=== PATIENT | female | born 1930 | race Caucasian/White ===

== ENCOUNTER 2018-07-23 18:56 | Inpatient (IN) ==
[2018-07-23 20:06] LABS: Basophils # (auto) 0.01 K/uL (0-0.2); Basophils % (auto) 0.1 %; Eosinophils # (auto) 0.02 K/uL (0-0.5); Eosinophils % (auto) 0.2 %; Hematocrit (blood only) 40.1 % (37-47); Hemoglobin 13.5 g/dL (12.0-16.0); Immature Granulocytes # (auto) 0.02 K/uL (0.00-0.02); Immature Granulocytes % (auto) 0.2 %; Lymphocytes % (auto) 10.7 %; Mean Corpuscular Hgb Conc 33.7 g/dL (32-36); Mean Corpuscular Volume 91.8 fL (80-100); Monocytes # (auto) 0.57 K/uL (0.11-0.59); Monocytes % (auto) 6.8 %; Neutrophils # (auto) 6.88 K/uL (1.4-6.5); Platelet Count 132 K/uL (130-400); RDW Coefficient of Variation 13.1 % (11.5-14.5); RDW Standard Deviation 43.9 fL (36.4-46.3); Red Blood Count 4.37 M/uL (4.2-5.4)
--- NOTE | 2018-07-23 20:06 | XRay Report ---
XR chest 1V portable CLINICAL HISTORY: fall trauma. Pain. COMPARISON STUDY: No previous studies for comparison. FINDINGS: The bones soft tissues and hemidiaphragms are normal. The cardiomediastinal silhouette is n ormal. The lungs are clear. The pulmonary vasculature is normal. IMPRESSION: Negative chest. The above report was generated using voice recognition software. It may contain grammatical, syntax or spelling errors. Electronically signed by: Mata Gillette M.D. 07/23/2018 8:05 PM
--- NOTE | 2018-07-23 20:07 | XRay Report ---
XR pelvis 1-2V routine CLINICAL HISTORY: fall trauma COMPARISON: 04/13/2018 DISCUSSION: The bones and joint spaces appear intact. There is no evidence of fracture, dislocation o r bony disease. There is no evidence for soft tissue swelling. IMPRESSION: Negative study. The above report was generated using voice recognition software. It may contain grammatical, syntax or spelling errors. Electronically signed by: Mata Gillette M.D. 07/23/2018 8:05 PM
[2018-07-23 20:25] LABS: BUN Creatinine Ratio 17.5 (10-20); Calcium 8.7 mg/dl (8.5-10.1); Creatinine Clr Calc Pharmacy 35.5 ml/min; Est GFR (African American) 74.6; Est GFR (Non-African American) 64.4
[2018-07-23 20:29] LABS: Troponin I 0.019 ng/ml (0-0.045)
--- NOTE | 2018-07-23 20:42 | CT Scan Report ---
CT head/brain wo con CT DOSE: 537.48 mGy.cm HISTORY: Trauma. Mental status change. fall TECHNIQUE: Multiaxial CT images of the head were performed without the use of intravenous contrast. A dose lowering technique was utilized adhering to the principles of ALARA. Comparison: 04/13/2018 Findings: The paranasal sinuses and mastoid air cells are clear. 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 Age-rel ated atrophy. Chronic small vessel change. No acute intracranial hemorrhage. Impression: No acute intracranial abnormality. Chronic and age-related change. The above report was generated using voice recognition software. It may contain grammatical, syntax or spelling errors. Electronically signed by: Mata Gillette M.D. 07/23/2018 8:40 PM
[2018-07-23] MEDS ORDERED: POLYETHYLENE (MIRALAX) 17 GM PACK PO PRN (23:13)
[2018-07-23] MEDS ORDERED: NITROGLYCERIN SL 0.4 MG/TAB TAB SL PRN (23:13)
[2018-07-23] MEDS ORDERED: SODIUM CHLORIDE 0.9% 1000ML 1,000 ML IV SCH (23:13)
[2018-07-23] MEDS ORDERED: ALUMINUM/MAGNESIUM SUSP 30 ML UDC PO PRN (23:13)
[2018-07-23] MEDS ORDERED: LORazepam 0.5 MG TAB PO PRN (23:13)
[2018-07-23] MEDS ORDERED: ACETAMINOPHEN 325 MG TAB PO PRN (23:13)
[2018-07-23] MEDS ORDERED: ONDANSETRON INJ 2 MG/ML 2 ML VIAL IV PRN (23:13)
--- NOTE | 2018-07-23 23:14 | Emergency Department Note ---
Entered by Mina Banks acting as a scribe for Serafin Alvarez History of Present Illness General Chief complaint: Fall Time Seen by Provider: 07/23/18 19:36 Source: patient Limitations: no limitations History of Present Illness Onset (ago): hour(s) (2 and half) Location: head Pain Consistency: + other (no pain) Maximum Pain Intensity: 0 Quality: + other (episode) Associated symptoms: + nausea/vomiting; no headaches The patient is a 88 year old female who presents to the Emergency Room with complaints of a unwitnessed fall occurring 2 and half hours ago. The patient states she was standing and fell. She states she does not remember falling or tripping. She is not sure how she fell. She states she vomited after she fell. The patient denies having any headaches. Nursing notes the patient takes a baby aspirin every day. Nursing notes the patient had a stomach bug last week. Home Medications Home Medications Medication Instructions Recorded Confirmed Type aspirin [Aspir-Low] 81 mg PO DAILY 04/13/18 07/23/18 History atorvastatin [Lipitor] 40 mg PO DAILY 04/13/18 07/23/18 History escitalopram oxalate [Lexapro] 20 mg PO DAILY 04/13/18 07/23/18 History lorazepam [Ativan] 0.5 mg PO DAILY PRN 04/13/18 07/23/18 History tamoxifen 20 mg PO DAILY 04/13/18 07/23/18 History multivitamin 1 tab PO DAILY 07/23/18 07/23/18 History Allergies Allergy/AdvReac Type Severity Reaction Status Date / Time No Known Allergies Allergy Verified 04/13/18 15:21 Past Med/Surg History Medical History History of hysterectomy Cerebrovascular disease (Chronic) "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 and A total of 10 systems reviewed and were otherwise negative Physical Exam Vital Signs Vital Signs - 24 hr 07/23/18 19:02 07/23/18 19:04 07/23/18 19:06 Temperature 36.4 C L Temperature Source Oral Sepsis Recent Fever Within 48 Hours No Sepsis Action Taken by Nursing No Action Required Pulse Rate 85 88 81 Pulse Rate [Apical] Pulse Rate from SpO2 Sensor 85 81 Pulse Rhythm Regular Pulse Strength Normal Respiratory Rate 19 16 19 Respiratory Effort / Characteristics Non-Labored Respiratory Depth Normal Respiratory Pattern Regular Blood Pressure 157/72 H 157/72 H Blood Pressure [Right Arm] Blood Pressure Mean 100 100 Blood Pressure Mean [Right Arm] Blood Pressure Position Lying Pulse Oximetry 99 96 99 Oxygen Delivery Method Room Air 07/23/18 19:10 07/23/18 19:20 07/23/18 19:30 Temperature Temperature Source Sepsis Recent Fever Within 48 Hours Sepsis Action Taken by Nursing Pulse Rate 85 79 80 Pulse Rate [Apical] 80 Pulse Rate from SpO2 Sensor 85 80 80 Pulse Rhythm Pulse Strength Respiratory Rate 18 17 13 Respiratory Effort / Characteristics Respiratory Depth Respiratory Pattern Blood Pressure Blood Pressure [Right Arm] 125/70 Blood Pressure Mean Blood Pressure Mean [Right Arm] 88 Blood Pressure Position Pulse Oximetry 98 98 99 Oxygen Delivery Method Room Air 07/23/18 19:31 07/23/18 19:40 07/23/18 19:50 Temperature Temperature Source Sepsis Recent Fever Within 48 Hours Sepsis Action Taken by Nursing Pulse Rate 78 83 83 Pulse Rate [Apical] Pulse Rate from SpO2 Sensor 79 81 82 Pulse Rhythm Pulse Strength Respiratory Rate 16 16 18 Respiratory Effort / Characteristics Respiratory Depth Respiratory Pattern Blood Pressure 125/70 Blood Pressure [Right Arm] Blood Pressure Mean 88 Blood Pressure Mean [Right Arm] Blood Pressure Position Pulse Oximetry 98 95 99 Oxygen Delivery Method 07/23/18 20:00 07/23/18 20:36 07/23/18 20:38 Temperature Temperature Source Sepsis Recent Fever Within 48 Hours Sepsis Action Taken by Nursing Pulse Rate 72 78 77 Pulse Rate [Apical] Pulse Rate from SpO2 Sensor 72 Pulse Rhythm Regular Pulse Strength Respiratory Rate 20 12 20 Respiratory Effort / Characteristics Respiratory Depth Respiratory Pattern Blood Pressure 140/61 116/74 Blood Pressure [Right Arm] Blood Pressure Mean 87 88 Blood Pressure Mean [Right Arm] Blood Pressure Position Pulse Oximetry 100 Oxygen Delivery Method Room Air 07/23/18 20:40 07/23/18 20:50 07/23/18 21:00 Temperature Temperature Source Sepsis Recent Fever Within 48 Hours Sepsis Action Taken by Nursing Pulse Rate 71 84 88 Pulse Rate [Apical] Pulse Rate from SpO2 Sensor 84 89 Pulse Rhythm Pulse Strength Respiratory Rate 14 20 18 Respiratory Effort / Characteristics Respiratory Depth Respiratory Pattern Blood Pressure 145/70 H Blood Pressure [Right Arm] Blood Pressure Mean 95 Blood Pressure Mean [Right Arm] Blood Pressure Position Pulse Oximetry 100 94 Oxygen Delivery Method 07/23/18 21:10 07/23/18 21:20 07/23/18 21:30 Temperature Temperature Source Sepsis Recent Fever Within 48 Hours Sepsis Action Taken by Nursing Pulse Rate 80 78 74 Pulse Rate [Apical] Pulse Rate from SpO2 Sensor Pulse Rhythm Pulse Strength Respiratory Rate 21 12 19 Respiratory Effort / Characteristics Respiratory Depth Respiratory Pattern Blood Pressure Blood Pressure [Right Arm] Blood Pressure Mean Blood Pressure Mean [Right Arm] Blood Pressure Position Pulse Oximetry Oxygen Delivery Method 07/23/18 21:31 07/23/18 21:40 07/23/18 21:50 Temperature Temperature Source Sepsis Recent Fever Within 48 Hours Sepsis Action Taken by Nursing Pulse Rate 77 74 72 Pulse Rate [Apical] Pulse Rate from SpO2 Sensor Pulse Rhythm Pulse Strength Respiratory Rate 21 13 11 L Respiratory Effort / Characteristics Respiratory Depth Respiratory Pattern Blood Pressure 112/67 Blood Pressure [Right Arm] Blood Pressure Mean 82 Blood Pressure Mean [Right Arm] Blood Pressure Position Pulse Oximetry Oxygen Delivery Method 07/23/18 22:00 Temperature Temperature Source Sepsis Recent Fever Within 48 Hours Sepsis Action Taken by Nursing Pulse Rate 70 Pulse Rate [Apical] Pulse Rate from SpO2 Sensor Pulse Rhythm Pulse Strength Respiratory Rate 15 Respiratory Effort / Characteristics Respiratory Depth Respiratory Pattern Blood Pressure 128/58 L Blood Pressure [Right Arm] Blood Pressure Mean 81 Blood Pressure Mean [Right Arm] Blood Pressure Position Pulse Oximetry Oxygen Delivery Method GENERAL: She is oriented to person, place, and time. She appears well-developed and well-nourished. She does not appear distressed. HENT: Exam performed. \\[id number] Head: Normocephalic and atraumatic. \\[id number] Right Ear: External ear normal. No mastoid tenderness. \\[id number] Left Ear: External ear normal. No mastoid tenderness. \\[id number] Mouth/Throat: The oropharynx is clear and moist. No trismus in the ja w. No dental abscesses or uvula swelling. No oropharyngeal exudate or tonsillar abscesses. EYES: Conjunctivae and EOM are normal. Pupils are equal, round, and reactive to light. Right eye exhibits no discharge. Left eye exhibits no discharge. No scleral icterus. NECK: Normal range of motion. Neck supple. No JVD present. No spinous process tenderness present. No carotid bruit present. No rigidity. No tracheal deviation and normal range of motion present. No Brudzinski's sign and no Kernig's sign noted. CV: Normal rate, regular rhythm, normal heart sounds and intact distal pulses. There is no peripheral edema. Palpable radial pulses bue. PULM/CHEST: Effort normal and breath sounds normal. No respiratory distress. No stridor. She has no wheezes. She has no rales. Chest Wall: She exhibits no tenderness. ABD: The abdomen is soft. Bowel sounds are normal. She has no distension. No mass is present. There is no tenderness. There is no rebound, no guarding, no Alvarez's sign and no tenderness at McBurney's point. Rovsig negative MUSC/SKEL: Normal range of motion. There is no peripheral edema, tenderness or deformity. LYMPH: No cervical adenopathy. NEURO: She is alert and oriented to person, place, and time. She has normal strength. No cranial nerve deficit or sensory deficit. Coordination and gait normal. GCS eye subscore is 4. GCS verbal subscore is 5. GCS motor subscore is 6. cerbellar tests wnl. SKIN: Skin is warm and dry. She is not diaphoretic. PSYCH: She has a normal mood and affect. Her behavior is normal. Judgment and thought content normal. Procedures FAST Exam FAST Exam 1: Fluid in Morison's pouch: No Fluid in Splenorenal Junction: No Fluid around bladder, Transverse view: No Fluid around bladder, Sagittal view: No Fluid in Pericardial Sac: No Gross Wall Motion Abnormality: No Study normal for this patient: Yes Images saved for further review: No Course 1936: Past medical records reviewed. The patient was evaluated in room A3, and a complete history and physical examination were performed. 2109: Vital signs stable. Labs and imaging within normal limits. FAST exam negative. Bedside ultrasound showed no AAA. Given the patient's elderly age, and her syncopal episode, the patient will be admitted to the hospitalist service for syncope workup. I reviewed the patient's case with Dr. Ricki Storey Hospitalist. He will evaluate the patient for further management. Medical Decision Making Medical Records Attestation: I reviewed the patient's medical records. Home Medications Current Medication List: was personally reviewed by me Laboratory Data Attestation: I reviewed the patient's lab results. Result diagrams: 07/23/18 19:50 07/23/18 19:50 Lab Results 07/23/18 07/23/18 Range/Units 19:50 19:50 WBC 8.40 (4.8-10.8) K/uL RBC 4.37 (4.2-5.4) M/uL Hgb 13.5 (12.0-16.0) g/dL Hct 40.1 (37-47) % MCV 91.8 (80-100) fL MCH 30.9 (25-34) pg MCHC 33.7 (32-36) g/dL RDW Std Deviation 43.9 (36.4-46.3) fL RDW Coeff of Winnie 13.1 (11.5-14.5) % Plt Count 132 (130-400) K/uL MPV 11.0 H (7.4-10.4) fL Immature Gran % (Auto) 0.2 % Neut % (Auto) 82.0 % Lymph % (Auto) 10.7 % Geary % (Auto) 6.8 % Eos % (Auto) 0.2 % Baso % (Auto) 0.1 % Immature Gran # (Auto) 0.02 (0.00-0.02) K/uL Neut # (Auto) 6.88 H (1.4-6.5) K/uL Lymph # (Auto) 0.90 L (1.2-3.4) K/uL Geary # (Auto) 0.57 (0.11-0.59) K/uL Eos # (Auto) 0.02 (0-0.5) K/uL Baso # (Auto) 0.01 (0-0.2) K/uL Sodium 141 (136-145) mmol/L Potassium 4.0 (3.5-5.1) mmol/L Chloride 106 (98-107) mmol/L Carbon Dioxide 25 (21-32) mmol/L Anion Gap 10.0 (3-11) BUN 14 (7-18) mg/dl Creatinine 0.81 (0.6-1.2) mg/dl Est Cr Clr Drug Dosing 35.5 ml/min Est GFR ( Amer) 74.6 Est GFR (Non-Af Amer) 64.4 BUN/Creatinine Ratio 17.5 (10-20) Glucose 114 H (70-99) mg/dl Calcium 8.7 (8.5-10.1) mg/dl Troponin I 0.019 (0-0.045) ng/ml Imaging Data Radiologist's Impression: Radiology results as stated below per my review and the radiologist's interpretation: CT head/brain wo con CT DOSE: 537.48 mGy.cm HISTORY: Trauma. Mental status change. fall TECHNIQUE: Multiaxial CT images of the head were performed without the use of intravenous contrast. A dose lowering technique was utilized adhering to the principles of ALARA. Comparison: 04/13/2018 Findings: The paranasal sinuses and mastoid air cells are clear. 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 Age-related atrophy. Chronic small vessel change. No acute intracranial hemorrhage. Impression: No acute intracranial abnormality. Chronic and age-related change. The above report was generated using voice recognition software. It may contain grammatical, syntax or spelling errors. Electronically signed by: Mata Gillette M.D. 07/23/2018 8:40 PM XR chest 1V portable CLINICAL HISTORY: fall trauma. Pain. COMPARISON STUDY: No previous studies for comparison. FINDINGS: The bones soft tissues and hemidiaphragms are normal. The cardiomediastinal silhouette is normal. The lungs are clear. The pulmonary vasculature is normal. IMPRESSION: Negative chest. The above report was generated using voice recognition software. It may contain grammatical, syntax or spelling errors. Electronically signed by: Mata Gillette M.D. 07/23/2018 8:05 PM XR pelvis 1-2V routine CLINICAL HISTORY: fall trauma COMPARISON: 04/13/2018 DISCUSSION: The bones and joint spaces appear intact. There is no evidence of fracture, dislocation or bony disease. There is no evidence for soft tissue swelling. IMPRESSION: Negative study. The above report was generated using voice recognition software. It may contain grammatical, syntax or spelling errors. Electronically signed by: Mata Gillette M.D. 07/23/2018 8:05 PM ECG Data Attestation: I personally reviewed and interpreted this ECG as follows: Indication: syncope Rate (beats per minute): 77 Rhythm: sinus rhythm Findings: + other (AK 234. QRS wnls. Left ventricular hypertrophy present. ), + 1st degree AV block and + left axis deviation Blood Pressure Blood Pressure Findings: Normal blood pressure Blood Pressure Disposition: further management by hospitalist SABINE Narrative Vital signs stable. Labs and imaging within normal limits. FAST exam negative. Bedside ultrasound showed no AAA. Given the patient's elderly age, and her syncopal episode, the patient will be admitted to the hospitalist service for syncope workup. I reviewed the patient's case with Dr. Ricki Storey Hospitalist. He will evaluate the patient for further management. Impression & Plan Syncope Discharge Plan Visit Data *Final* Discharge Date/Time: 07/23/18 22:31 Chief Complaint: Fall ED Provider: Serafin Alvarez Discharge Problem: Syncope Patient Disposition: Admitted As Inpatient Discharge Instructions Interventions: ED Discharge Assessment Last Done: 07/23/18 22:31 Discharge Problem: Syncope Qualifiers: Syncope type: unspecified Qualified Code(s): R55 - Syncope and collapse The scribe's documentation has been prepared under my direction and personally reviewed by me in its entirety. I confirm that the note above accurately reflects all work, treatment, procedures, and medical decision making performed by me.
[2018-07-24 05:41] LABS: Basophils # (auto) 0.04 K/uL (0-0.2); Basophils % (auto) 0.6 %; Eosinophils # (auto) 0.04 K/uL (0-0.5); Eosinophils % (auto) 0.6 %; Hematocrit (blood only) 36.1 % (37-47); Hemoglobin 12.2 g/dL (12.0-16.0); Immature Granulocytes # (auto) 0.02 K/uL (0.00-0.02); Immature Granulocytes % (auto) 0.3 %; Lymphocytes # (auto) 1.59 K/uL (1.2-3.4); Lymphocytes % (auto) 23.7 %; Mean Corpuscular Hgb Conc 33.8 g/dL (32-36); Mean Corpuscular Volume 91.6 fL (80-100); Mean Platelet Volume 11.1 fL (7.4-10.4); Monocytes # (auto) 0.58 K/uL (0.11-0.59); Monocytes % (auto) 8.6 %; Neutrophils # (auto) 4.45 K/uL (1.4-6.5); Neutrophils % (auto) 66.2 %; Platelet Count 122 K/uL (130-400); RDW Coefficient of Variation 13.1 % (11.5-14.5); RDW Standard Deviation 44.1 fL (36.4-46.3); Red Blood Count 3.94 M/uL (4.2-5.4); White Blood Count 6.72 K/uL (4.8-10.8)
[2018-07-24 06:06] LABS: BUN Creatinine Ratio 19.2 (10-20); Calcium 7.9 mg/dl (8.5-10.1); Est GFR (African American) 86.1; Est GFR (Non-African American) 74.3; Magnesium 1.9 mg/dl (1.8-2.4); Potassium 3.8 mmol/L (3.5-5.1)
[2018-07-24 06:10] LABS: Troponin I 0.027 ng/ml (0-0.045)
[2018-07-24] MEDS ORDERED: MAGNESIUM SULFATE / D5W 1 GM/100 ML BAG IV ONE (07:30)
[2018-07-24] MEDS: ASPIRIN 81 MG ECTAB PO SCH (08:12)
[2018-07-24] MEDS: MULTIVITAMIN TAB PO SCH (08:13)
[2018-07-24] MEDS: TAMOXIFEN CITRATE 10 MG TABLET PO SCH (08:13)
[2018-07-24] MEDS: ESCITALOPRAM OXALATE 20 MG TAB PO SCH (08:13)
[2018-07-24] MEDS: ATORVASTATIN 40 MG TAB PO SCH (08:13)
--- NOTE | 2018-07-24 09:05 | History and Physical Report ---
DATE OF ADMISSION: 07/23/2018 CHIEF COMPLAINT: Fall and vomiting. HISTORY OF PRESENT ILLNESS: This patient is an 88-year-old female with past medical history significant for hyperlipidemia, allergic rhinitis, chronic kidney disease stage III, osteoporosis, invasive ductal carcinoma of breast, depression, dementia, history of cerebrovascular accident and anxiety who lives with her . Her was out, to the store and she was standing at home, suddenly she fell down and vomited and the vomitus was large amount and she could not get up and she called 911 and was brought in here. All the imaging studies are unremarkable so far. The patient is hemodynamically stable, alert and awake and oriented. She states she did not pass out. She did not hit her head. Denies any headaches. No blurred visions. Somewhat hard of hearing. No sore throat. No difficulty swallowing. She states she can eat regular diet. No cough. No fever. No chills. No chest pain. No shortness of breath. Currently, no nausea. No abdominal pain. She states she moves her bowels every few days. Last bowel movement was a few days ago. She goes to bathroom frequently, and it is not unusual for her. No swelling of the legs. No rash. Since her stroke, she is no longer driving. Her cannot drive in the night that is why he is not here. Her daughter lives close to [place] and she is coming tomorrow. Currently, she is resting comfortably and hemodynamically stable. ALLERGIES: No known drug allergies. PAST MEDICAL HISTORY: As mentioned above. PAST SURGICAL HISTORY: Biopsy of lymph node axillary, colonoscopy with biopsy, cystoscopy, left simple mastectomy and total abdominal hysterectomy with removal of tubes. MEDICATIONS: The patient is on Ativan 0.5 mg p.o. daily for anxiety, Lipitor 40 mg p.o. daily, Lexapro 20 mg p.o. daily, tamoxifen 20 mg p.o. daily, multivitamins 1 tablet daily and aspirin 81 mg p.o. daily. FAMILY HISTORY: Significant for father had colon cancer. Mother had diabetes. SOCIAL HISTORY: , lives with her . She used to smoke 1 pack, quit 20 years ago. Alcohol, occasional. No drug use. REVIEW OF SYMPTOMS: As per HPI. Rest of review of systems is negative. PHYSICAL EXAMINATION: GENERAL: The patient is old and frail, not in acute distress. VITAL SIGNS: Temperature 36.4, pulse 70, respiratory rate 12, blood pressure 145/70 and oxygen 92% on room air. HEENT: No pallor. No icterus. Pupils are equal, round and react to light. Extraocular muscles intact. NECK: No JVD. No neck masses. No carotid bruits. CARDIOVASCULAR: S1, S2 heard. Regular rate and rhythm. No murmur. No gallop. RESPIRATORY SYSTEM: Normal AP diameter. No accessory muscle use. No wheezing, no crackles. ABDOMEN: Soft. Bowel sounds present. Nontender. No distention. CENTRAL NERVOUS SYSTEM: Cranial nerves II-XII grossly intact. Nonfocal. EXTREMITIES: No edema. No erythema. LABORATORY DATA: WBC 8.4, hemoglobin 13.5, hematocrit 40.1 and platelets 132. Sodium 141, potassium 4, chloride 106, bicarbonate 25, BUN 14, creatinine 0.8, serum glucose 114 and calcium 8.7. Troponin 0.019. Pelvic x-ray, negative study. CT of the head, no acute intracranial abnormalities seen. Chest x-ray, negative chest. ASSESSMENT AND PLAN: This patient is an 88-year-old female who presents with fall and vomiting. 1. Fall and vomiting. No other complaints. Could be orthostatic hypotension or presyncope. We will observe on tele floor for any dysrhythmias. Gentle fluids. Check for orthostatic hypotension. Echocardiogram, serial cardiac enzymes, physical therapy and occupational therapy. CT of the head is negative. 2. History of cerebrovascular accident, on statin and aspirin. CT of the head is negative today. 3. History of invasive ductal carcinoma of the breast Follows with Hematology Oncology, on tamoxifen therapy. 4. History of depression and anxiety, on Lexapro and Ativan p.r.n. 5. History of hyperlipidemia, on statin. 6. Chronic kidney disease stage III, creatinine 0.8. We will follow the laboratories. 7. Deep venous thrombosis prophylaxis, sequential compression devices for now. DISPOSITION: Observation, Med/Surg Tele, code status level 1 full code as per my discussion with the patient. PT and OT prior to discharge. Social Service to help with discharge planning. [facility]IDE HOSPITALJazmín
[2018-07-24 14:49] LABS: Appearance Urine Cloudy (Clear); Bacteria Urine Automated 2+ (Negative); Bilirubin Urine Negative (Negative); Blood Urine Negative (Negative); Color Urine Yellow; Epithelial Cell Urine Auto 0-5 /lpf (0-5); Glucose Urine UA Negative (Negative); Ketones Urine 1+ (Negative); Leukocyte Esterase Urine 3+ (Negative); Nitrite Urine Positive (Negative); Protein Urine Negative (Negative); RBC Urine Automated 0-4 /hpf (0-4); Specific Gravity Urine 1.014 (1.000-1.030); Urobilinogen Urine Negative (Negative); pH Urine 6.5 (4.5-7.5)
--- NOTE | 2018-07-24 15:02 | Hospitalist Progress Note ---
Date of Service July 24, 2018 Assessment & Plan (1) Generalized weakness: This patient is an 88-year-old female who presents with fall and vomiting. Fall and vomiting -no evidence of pelvic fracture or acute stroke -no vomiting currently Generalized weakness -may be from Urinary Tract infection suspected Urinary Tract infection -Urinalysis with bacteria start ceftriaxone empirically, await urine culture results Ambulatory dysfunction -evaluated by Physical Therapy -patient noted to have increased lateral sway and intermittent teetering as per physical therapy notes. physical therapy recommended Intermediate Facility placement History of cerebrovascular accident in the past -no acute stroke on this admission head CT -continue on statin and aspirin History of invasive ductal carcinoma of the breast -continue home dose tamoxifen therapy. History of depression and anxiety -continue on Lexapro and Ativan p.r.n. Chronic kidney disease stage 2 to 3 -renal function stable Deep venous thrombosis prophylaxis, sequential compression devices for now Daughter Fiona from [place] [phone] Subjective Patient seen and examined today and appears to be at mental baseline as per daughter [phone]. However patient reports of feeling weak and felt subjectively lightheaded. Otherwise, patient appears comfortable on hospital bed. Patient did some minimal activities with physical therapy and physical therapy recommends care home facility Patient denies acute pain or shortness of breath. Able to eat without difficulties Physical Exam Vital Signs (Past 24 Hours): Last Vital Signs Temp 36.8 C 07/24/18 12:16 Pulse 71 07/24/18 12:16 Resp 18 07/24/18 12:16 BP 116/71 07/24/18 12:16 Pulse Ox 98 07/24/18 12:16 Constitutional: WD/WN, vitals as above Eyes: PERRL, conjunctivae normal, anicteric sclerae EOM intact bilaterally ENMT: external ear and nose normal, oropharynx normal Neck: trachea midline, no thyromegaly Respiratory: normal respiratory effort, lungs clear to auscultation Cardiovascular: RRR, no murmur, no edema Gastrointestinal (Abdomen): normal bowel sounds, soft, nontender, no hepatosplenomegaly Musculoskeletal: Head/Neck/Chest: normocephalic and head atraumatic Neurologic: PERRL, EOMI, accommodation nl, no face palsy, no dysarthria Psychiatric: A+Ox3, euthymic affect
[2018-07-24] MEDS: cefTRIAXone SODIUM 1,000 MG in DEXTROSE 5% 50 ML IV SCH (16:09)
[2018-07-25] MEDS: ASPIRIN 81 MG ECTAB PO SCH (08:18)
[2018-07-25] MEDS: ESCITALOPRAM OXALATE 20 MG TAB PO SCH (08:18)
[2018-07-25] MEDS: TAMOXIFEN CITRATE 10 MG TABLET PO SCH (08:18)
[2018-07-25] MEDS: ATORVASTATIN 40 MG TAB PO SCH (08:18)
[2018-07-25] MEDS: MULTIVITAMIN TAB PO SCH (08:18)
[2018-07-25] MEDS: cefTRIAXone SODIUM 1,000 MG in DEXTROSE 5% 50 ML IV SCH (08:42)
--- NOTE | 2018-07-25 12:05 | Hospitalist Progress Note ---
Date of Service July 25, 2018 Assessment & Plan (1) Generalized weakness: This patient is an 88-year-old female who presents with fall and vomiting. Fall and vomiting -no evidence of pelvic fracture or acute stroke -no vomiting currently Generalized weakness -may be from Urinary Tract infection -serum magnesium 1.9 on 07/25/18; give IV magnesium x 1 suspected Urinary Tract infection -Urinalysis with bacteria -continue with daily ceftriaxone that have been started on 07/24/18, await urine culture results Ambulatory dysfunction -evaluated by Physical Therapy 07/24/18; patient noted to have increased lateral sway and intermittent teetering as per physical therapy notes. physical therapy recommended [facility] Facility placement -case management has made referral to [facility] in [place] for intermediate facility care -continue PT/OT evaluations while inpatient History of cerebrovascular accident in the past -no acute stroke on this admission head CT -continue on statin and aspirin History of invasive ductal carcinoma of the breast -continue home dose tamoxifen therapy. History of depression and anxiety -continue on Lexapro and Ativan p.r.n. Chronic kidney disease stage 2 to 3 -renal function stable Deep venous thrombosis prophylaxis, sequential compression devices for now Daughter Fiona from [place] [phone] Subjective Patient sitting up in chair and when seeing medical doctor she reports she feels weak She denies lightheadedness or dizziness. Patient denies acute pain or shortness of breath. no vomiting Physical Exam Vital Signs (Past 24 Hours): Last Vital Signs Temp 36.5 C 07/25/18 11:50 Pulse 72 07/25/18 11:50 Resp 16 07/25/18 11:50 BP 107/66 07/25/18 11:50 Pulse Ox 95 07/25/18 11:50 Constitutional: WD/WN, vitals as above Eyes: PERRL, conjunctivae normal, anicteric sclerae EOM intact bilaterally ENMT: external ear and nose normal, oropharynx normal Neck: trachea midline, no thyromegaly Respiratory: normal respiratory effort, lungs clear to auscultation Cardiovascular: RRR, no murmur, no edema Gastrointestinal (Abdomen): normal bowel sounds, soft, nontender, no hepatosplenomegaly Musculoskeletal: Head/Neck/Chest: normocephalic and head atraumatic Neurologic: PERRL, EOMI, accommodation nl, no face palsy, no dysarthria Psychiatric: A+Ox3, euthymic affect
[2018-07-26] MEDS: ASPIRIN 81 MG ECTAB PO SCH (08:05)
[2018-07-26] MEDS: MULTIVITAMIN TAB PO SCH (08:05)
[2018-07-26] MEDS: ESCITALOPRAM OXALATE 20 MG TAB PO SCH (08:05)
[2018-07-26] MEDS: cefTRIAXone SODIUM 1,000 MG in DEXTROSE 5% 50 ML IV SCH (08:05)
[2018-07-26] MEDS: TAMOXIFEN CITRATE 10 MG TABLET PO SCH (08:05)
[2018-07-26] MEDS: ATORVASTATIN 40 MG TAB PO SCH (08:05)
[2018-07-26 08:37] LABS: Creatinine Clr Calc Pharmacy 38.4 ml/min; Est GFR (African American) 81.9; Est GFR (Non-African American) 70.7; Potassium 3.8 mmol/L (3.5-5.1)
--- NOTE | 2018-07-26 10:25 | Hospitalist Progress Note ---
Date of Service July 26, 2018 Assessment & Plan (1) Generalized weakness: This patient is an 88-year-old female who presents with fall and vomiting. Fall and vomiting -no evidence of pelvic fracture or acute stroke -no vomiting currently Generalized weakness -may be from Urinary Tract infection -serum magnesium 1.9 on 07/25/18; give IV magnesium x 1 -serum magnesium is 2 on 07/26/18 which is normal level suspected Urinary Tract infection -Urinalysis with bacteria -continue with daily ceftriaxone that have been started on 07/24/18 -the urine culture results as Klebsiella pneumoniae which is generally pansensitive to antibiotics -possibly could be a colonization given patient has had Klebsiella pneumoniae before in urine culture from 04/13/18 -patient will complete a 3 day course of antibiotics by 3rd dose of ceftriaxone on 07/26/18 Ambulatory dysfunction -evaluated by Physical Therapy 07/24/18; patient noted to have increased lateral sway and intermittent teetering as per physical therapy notes. physical therapy recommended [facility] Facility placement -case management has made referral to [facility] in [place] for custodial facility care -continue PT/OT evaluations while inpatient History of cerebrovascular accident in the past -no acute stroke on this admission head CT -continue on statin and aspirin History of invasive ductal carcinoma of the breast -continue home dose tamoxifen therapy. History of depression and anxiety -continue on Lexapro and Ativan p.r.n. Chronic kidney disease stage 2 to 3 -renal function stable Deep venous thrombosis prophylaxis, sequential compression devices for now Daughter Fiona from [place] [phone] Subjective Patient laying in bed with breakfast at bedside. She denies lightheadedness or dizziness. Patient denies acute pain or shortness of breath. no vomiting When asked specifically about dysuria, patient denies Physical Exam Vital Signs (Past 24 Hours): Last Vital Signs Temp 36.8 C 07/26/18 07:30 Pulse 61 07/26/18 08:00 Resp 18 07/26/18 07:30 BP 155/58 H 07/26/18 07:30 Pulse Ox 96 07/26/18 07:30 Constitutional: WD/WN, vitals as above Eyes: PERRL, conjunctivae normal, anicteric sclerae EOM intact bilaterally ENMT: external ear and nose normal, oropharynx normal Neck: trachea midline, no thyromegaly Respiratory: normal respiratory effort, lungs clear to auscultation Cardiovascular: RRR, no murmur, no edema Gastrointestinal (Abdomen): normal bowel sounds, soft, nontender, no hepatosplenomegaly Musculoskeletal: Head/Neck/Chest: normocephalic and head atraumatic Neurologic: PERRL, EOMI, accommodation nl, no face palsy, no dysarthria Psychiatric: A+Ox3, euthymic affect
[2018-07-27] MEDS: MULTIVITAMIN TAB PO SCH (07:53)
[2018-07-27] MEDS: TAMOXIFEN CITRATE 10 MG TABLET PO SCH (07:53)
[2018-07-27] MEDS: ATORVASTATIN 40 MG TAB PO SCH (07:53)
[2018-07-27] MEDS: ASPIRIN 81 MG ECTAB PO SCH (07:53)
[2018-07-27] MEDS: ESCITALOPRAM OXALATE 20 MG TAB PO SCH (07:53)
[2018-07-27] MEDS: cefTRIAXone SODIUM 1,000 MG in DEXTROSE 5% 50 ML IV SCH (07:54)
--- NOTE | 2018-07-27 18:19 | Hospitalist Progress Note ---
Date of Service July 27, 2018 Assessment & Plan (1) Generalized weakness: This patient is an 88-year-old female who presents with fall and vomiting. Fall and vomiting -no evidence of pelvic fracture or acute stroke -no vomiting currently Generalized weakness -may be from Urinary Tract infection -serum magnesium 1.9 on 07/25/18; give IV magnesium x 1 -serum magnesium is 2 on 07/26/18 which is normal level suspected Urinary Tract infection -Urinalysis with bacteria -continue with daily ceftriaxone that have been started on 07/24/18 -the urine culture results as Klebsiella pneumoniae which is generally pansensitive to antibiotics -possibly could be a colonization given patient has had Klebsiella pneumoniae before in urine culture from 04/13/18 -patient completed ceftriaxone on 07/27/18 Ambulatory dysfunction -evaluated by Physical Therapy 07/24/18; patient noted to have increased lateral sway and intermittent teetering as per physical therapy notes. physical therapy recommended [facility] Facility placement -case management has made referral referral to [facility] in [place] for senior living facility care -continue PT/OT evaluations while inpatient History of cerebrovascular accident in the past -no acute stroke on this admission head CT -continue on statin and aspirin History of invasive ductal carcinoma of the breast -continue home dose tamoxifen therapy. History of depression and anxiety -continue on Lexapro and Ativan p.r.n. Chronic kidney disease stage 2 to 3 -renal function stable Deep venous thrombosis prophylaxis, sequential compression devices for now Daughter Fiona from [place] [phone] Subjective She denies lightheadedness or dizziness. Patient denies acute pain or shortness of breath. no vomiting Physical Exam Vital Signs (Past 24 Hours): Last Vital Signs Temp 36.6 C 07/27/18 15:56 Pulse 77 07/27/18 15:56 Resp 20 07/27/18 15:56 BP 99/62 L 07/27/18 15:56 Pulse Ox 94 07/27/18 15:56 Constitutional: WD/WN, vitals as above Eyes: PERRL, conjunctivae normal, anicteric sclerae EOM intact bilaterally ENMT: external ear and nose normal, oropharynx normal Neck: trachea midline, no thyromegaly Respiratory: normal respiratory effort, lungs clear to auscultation Cardiovascular: RRR, no murmur, no edema Gastrointestinal (Abdomen): normal bowel sounds, soft, nontender, no hepatosplenomegaly Musculoskeletal: Head/Neck/Chest: normocephalic and head atraumatic Neurologic: PERRL, EOMI, accommodation nl, no face palsy, no dysarthria Psychiatric: A+Ox3, euthymic affect
[2018-07-28] MEDS: ATORVASTATIN 40 MG TAB PO SCH (07:39)
[2018-07-28] MEDS: MULTIVITAMIN TAB PO SCH (07:39)
[2018-07-28] MEDS: ESCITALOPRAM OXALATE 20 MG TAB PO SCH (07:39)
[2018-07-28] MEDS: ASPIRIN 81 MG ECTAB PO SCH (07:40)
[2018-07-28] MEDS: TAMOXIFEN CITRATE 10 MG TABLET PO SCH (07:40)
--- NOTE | 2018-07-28 16:52 | Hospitalist Progress Note ---
Date of Service July 28, 2018 Assessment & Plan (1) Generalized weakness: This patient is an 88-year-old female who presents with fall and vomiting. Fall and vomiting -no evidence of pelvic fracture or acute stroke -no vomiting currently Generalized weakness -may be from Urinary Tract infection -serum magnesium 1.9 on 07/25/18; give IV magnesium x 1 -serum magnesium is 2 on 07/26/18 which is normal level suspected Urinary Tract infection -Urinalysis with bacteria -continue with daily ceftriaxone that have been started on 07/24/18 -the urine culture results as Klebsiella pneumoniae which is generally pansensitive to antibiotics -possibly could be a colonization given patient has had Klebsiella pneumoniae before in urine culture from 04/13/18 -patient completed ceftriaxone on 07/27/18 Ambulatory dysfunction -evaluated by Physical Therapy 07/24/18; patient noted to have increased lateral sway and intermittent teetering as per physical therapy notes. physical therapy recommended [facility] Facility placement -case management has made referral referral to [facility] in [place] for care home facility care and [facility] -as per recent case therapist notes: [facility] will have a bed for on Thursday07/30/18 and Family plans on providing transport but they do not want patient's elderly to drive her there. -continue PT/OT evaluations while inpatient History of cerebrovascular accident in the past -no acute stroke on this admission head CT -continue on statin and aspirin History of invasive ductal carcinoma of the breast -continue home dose tamoxifen therapy. History of depression and anxiety -continue on Lexapro and Ativan p.r.n. Chronic kidney disease stage 2 to 3 -renal function stable Deep venous thrombosis prophylaxis, sequential compression devices for now Daughter Fiona from [place] [phone] Subjective She denies lightheadedness or dizziness. Patient denies acute pain or shortness of breath. no vomiting Physical Exam Vital Signs (Past 24 Hours): Last Vital Signs Temp 37.0 C 07/28/18 14:43 Pulse 67 07/28/18 14:43 Resp 16 07/28/18 14:43 BP 113/69 07/28/18 14:43 Pulse Ox 93 07/28/18 14:43 Constitutional: WD/WN, vitals as above Eyes: PERRL, conjunctivae normal, anicteric sclerae EOM intact bilaterally ENMT: external ear and nose normal, oropharynx normal Neck: trachea midline, no thyromegaly Respiratory: normal respiratory effort, lungs clear to auscultation Cardiovascular: RRR, no murmur, no edema Gastrointestinal (Abdomen): normal bowel sounds, soft, nontender, no hepatosplenomegaly Musculoskeletal: Head/Neck/Chest: normocephalic and head atraumatic Neurologic: PERRL, EOMI, accommodation nl, no face palsy, no dysarthria Psychiatric: A+Ox3, euthymic affect
[2018-07-29] MEDS: MULTIVITAMIN TAB PO SCH (09:02)
[2018-07-29] MEDS: ATORVASTATIN 40 MG TAB PO SCH (09:02)
[2018-07-29] MEDS: TAMOXIFEN CITRATE 10 MG TABLET PO SCH (09:02)
[2018-07-29] MEDS: ASPIRIN 81 MG ECTAB PO SCH (09:02)
[2018-07-29] MEDS: ESCITALOPRAM OXALATE 20 MG TAB PO SCH (09:02)
--- NOTE | 2018-07-29 15:23 | Hospitalist Progress Note ---
Date of Service July 29, 2018 Assessment & Plan (1) Generalized weakness: Per Dr. Cabrera's notes This patient is an 88-year-old female who presents with fall and vomiting. Fall and vomiting -no evidence of pelvic fracture or acute stroke -Vomiting resolved Generalized weakness -may be from Urinary Tract infection Possibly from hypomagnesemia also, corrected suspected Urinary Tract infection -Urinalysis with bacteria -the urine culture results as Klebsiella pneumoniae which is generally pansensitive to antibiotics -patient completed ceftriaxone on 07/27/18 -No urinary symptoms Ambulatory dysfunction Patient awaiting bed in [facility] Per patient's daughter request, completed [facility] form with the bedside with the patient History of cerebrovascular accident in the past -CT head: No acute CVA -continue on statin and aspirin History of invasive ductal carcinoma of the breast -continue home dose tamoxifen therapy. History of depression and anxiety -continue on Lexapro and Ativan p.r.n. Chronic kidney disease stage 2 to 3 -renal function stable Deep venous thrombosis prophylaxis, sequential compression devices for now Daughter Fiona from [place] [phone] Disposition awaiting bed availability in [facility] tomorrow Subjective Follow-up for weakness, possible UTI Seen walking in the room, then settled into her bedside chair, comfortable, pleasant States she feels fine overall Denies urinary symptoms, fevers or chills Denies dizziness, shortness of breath, chest pain, abdominal pain, or any other symptoms Physical Exam Vital Signs (Past 24 Hours): Last Vital Signs Temp 36.6 C 07/29/18 15:09 Pulse 71 07/29/18 15:09 Resp 16 07/29/18 15:09 BP 114/74 07/29/18 15:09 Pulse Ox 93 07/29/18 15:09 Physical Exam: General- oriented x 2, not in distress, speaks in sentences with no effort or accessory muscle use Eyes- anicteric Neck- no JVD Lungs- clear breath sounds bilaterally, no rales/wheezes Heart- normal rate, regular rhythm; no murmurs Abdomen- normal bowel sounds, nondistended, soft, nontender Extremities- no pretibial edema, no calf tenderness Neuro- alert, oriented x 2; no gross focal neurologic deficits Skin- warm & dry
[2018-07-30] MEDS: ESCITALOPRAM OXALATE 20 MG TAB PO SCH (09:08)
[2018-07-30] MEDS: ASPIRIN 81 MG ECTAB PO SCH (09:08)
[2018-07-30] MEDS: TAMOXIFEN CITRATE 10 MG TABLET PO SCH (09:09)
[2018-07-30] MEDS: MULTIVITAMIN TAB PO SCH (09:09)
[2018-07-30] MEDS: ATORVASTATIN 40 MG TAB PO SCH (09:09)
--- NOTE | 2018-07-30 11:47 | Hospitalist Progress Note ---
Date of Service July 30, 2018 Assessment & Plan (1) Generalized weakness: This patient is an 88-year-old female who presents with fall and vomiting. Fall and vomiting -no evidence of pelvic fracture or acute stroke -Vomiting resolved Generalized weakness -may be from Urinary Tract infection Possibly from hypomagnesemia also, corrected Suspected Urinary Tract infection -Urinalysis with bacteria -the urine culture results as Klebsiella pneumoniae which is generally pansensitive to antibiotics -patient completed ceftriaxone on 07/27/18 -No urinary symptoms Ambulatory dysfunction continue PT/OT Fall precautions Per patient's daughter request, completed [facility] form with the patient at bedside History of cerebrovascular accident in the past -CT head: No acute CVA -continue on statin and aspirin History of invasive ductal carcinoma of the breast -continue home dose tamoxifen therapy. History of depression and anxiety -continue on Lexapro and Ativan p.r.n. Chronic kidney disease stage 2 to 3 -renal function stable Disposition d/c to [facility] today Follow-up with primary care physician in 1 week. Subjective Follow-up for weakness, possible UTI Resting bedside chair, comfortable, in good spirits States she feels good overall Denies any symptoms States she is ready would like to be discharged today Physical Exam Vital Signs (Past 24 Hours): Last Vital Signs Temp 36.7 C 07/30/18 11:24 Pulse 60 07/30/18 11:24 Resp 15 07/30/18 11:24 BP 108/67 07/30/18 11:24 Pulse Ox 96 07/30/18 11:24 Physical Exam: General- oriented x 2, not in distress, speaks in sentences with no effort or accessory muscle use Eyes- anicteric Neck- no JVD Lungs- clear breath sounds bilaterally Heart- normal rate, regular rhythm; no murmurs Abdomen- normal bowel sounds, nondistended, soft, nontender Extremities- no pretibial edema, no calf tenderness Neuro- alert, oriented x 2; no gross focal neurologic deficits Skin- warm & dry
--- NOTE | 2018-07-30 12:01 | Discharge Summary ---
Date of Service July 30, 2018 Admission HPI Per Admitting Provider DATE OF ADMISSION: 07/23/2018 CHIEF COMPLAINT: Fall and vomiting. HISTORY OF PRESENT ILLNESS: This patient is an 88-year-old female with past medical history significant for hyperlipidemia, allergic rhinitis, chronic kidney disease stage III, osteoporosis, invasive ductal carcinoma of breast, depression, dementia, history of cerebrovascular accident and anxiety who lives with her . Her was out, to the store and she was standing at home, suddenly she fell down and vomited and the vomitus was large amount and she could not get up and she called 911 and was brought in here. All the imaging studies are unremarkable so far. The patient is hemodynamically stable, alert and awake and oriented. She states she did not pass out. She did not hit her head. Denies any headaches. No blurred visions. Somewhat hard of hearing. No sore throat. No difficulty swallowing. She states she can eat regular diet. No cough. No fever. No chills. No chest pain. No shortness of breath. Currently, no nausea. No abdominal pain. She states she moves her bowels every few days. Last bowel movement was a few days ago. She goes to bathroom frequently, and it is not unusual for her. No swelling of the legs. No rash. Since her stroke, she is no longer driving. Her cannot drive in the night that is why he is not here. Her daughter lives close to [place] and she is coming tomorrow. Currently, she is resting comfortably and hemodynamically stable. ALLERGIES: No known drug allergies. PAST MEDICAL HISTORY: As mentioned above. PAST SURGICAL HISTORY: Biopsy of lymph node axillary, colonoscopy with biopsy, cystoscopy, left simple mastectomy and total abdominal hysterectomy with removal of tubes. MEDICATIONS: The patient is on Ativan 0.5 mg p.o. daily for anxiety, Lipitor 40 mg p.o. daily, Lexapro 20 mg p.o. daily, tamoxifen 20 mg p.o. daily, multivitamins 1 tablet daily and aspirin 81 mg p.o. daily. FAMILY HISTORY: Significant for father had colon cancer. Mother had diabetes. SOCIAL HISTORY: , lives with her . She used to smoke 1 pack, quit 20 years ago. Alcohol, occasional. No drug use. REVIEW OF SYMPTOMS: As per HPI. Rest of review of systems is negative. Admission Exam Per Admitting Provider PHYSICAL EXAMINATION: GENERAL: The patient is old and frail, not in acute distress. VITAL SIGNS: Temperature 36.4, pulse 70, respiratory rate 12, blood pressure 145/70 and oxygen 92% on room air. HEENT: No pallor. No icterus. Pupils are equal, round and react to light. Extraocular muscles intact. NECK: No JVD. No neck masses. No carotid bruits. CARDIOVASCULAR: S1, S2 heard. Regular rate and rhythm. No murmur. No gallop. RESPIRATORY SYSTEM: Normal AP diameter. No accessory muscle use. No wheezing, no crackles. ABDOMEN: Soft. Bowel sounds present. Nontender. No distention. CENTRAL NERVOUS SYSTEM: Cranial nerves II-XII grossly intact. Nonfocal. EXTREMITIES: No edema. No erythema. Principal Diagnosis Generalized weakness Discharge Exam Vital Signs (Past 24 Hours): Last Vital Signs Temp 36.7 C 07/30/18 11:24 Pulse 60 07/30/18 11:24 Resp 15 07/30/18 11:24 BP 108/67 07/30/18 11:24 Pulse Ox 96 07/30/18 11:24 Physical Exam: General- oriented x 2, not in distress, speaks in sentences with no effort or accessory muscle use Eyes- anicteric Neck- no JVD Lungs- clear breath sounds bilaterally Heart- normal rate, regular rhythm; no murmurs Abdomen- normal bowel sounds, nondistended, soft, nontender Extremities- no pretibial edema, no calf tenderness Neuro- alert, oriented x 2; no gross focal neurologic deficits Skin- warm & dry Discharge Data Allergies Allergy/AdvReac Type Severity Reaction Status Date / Time No Known Allergies Allergy Verified 04/13/18 15:21 Consultations 07/23/18 21:12 ED Decision to Admit Stat 07/23/18 23:13 Consult Case Management - Discharge Planning Routine Ordered Studies 07/23/18 19:41 CT head/brain wo con Stat HISTORY: Trauma. Mental status change. fall TECHNIQUE: Multiaxial CT images of the head were performed without the use of intravenous contrast. A dose lowering technique was utilized adhering to the principles of ALARA. Comparison: 04/13/2018 Findings: The paranasal sinuses and mastoid air cells are clear. 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 Age-related atrophy. Chronic small vessel change. No acute intracranial hemorrhage. Impression: No acute intracranial abnormality. Chronic and age-related change. Hospital Course (1) Generalized weakness: This patient is an 88-year-old female who presents with fall and vomiting. Fall and vomiting -no evidence of pelvic fracture or acute stroke -Vomiting resolved Generalized weakness -may be from Urinary Tract infection Possibly from hypomagnesemia also, corrected Suspected Urinary Tract infection -Urinalysis with bacteria -the urine culture results as Klebsiella pneumoniae which is generally pansensitive to antibiotics -patient completed ceftriaxone on 07/27/18 -No urinary symptoms Ambulatory dysfunction continue PT/OT Fall precautions Per patient's daughter request, completed [facility] form with the patient at bedside History of cerebrovascular accident in the past -CT head: No acute CVA -continue on statin and aspirin History of invasive ductal carcinoma of the breast -continue home dose tamoxifen therapy. History of depression and anxiety -continue on Lexapro and Ativan p.r.n. Chronic kidney disease stage 2 to 3 -renal function stable Disposition d/c to [facility] Follow-up with primary care physician in 1 week. Total Time Total Time Spent Total Time Spent (In Minutes): 30 minutes Discharge Plan Discharge Items Patient Disposition: Transfer [facility] Fac Reason For Visit: FALL Discharge Diagnosis: Generalized weakness Condition: Good Discharge Goals: Diagnostic testing and Therapeutic intervention Activity: As commented below Activity Comment: Resume activity gradually as tolerated Non-emergency contact: Primary Care Provider Call non-emergency contact if: you have any medication questions, your symptoms worsen, your pain is not controlled, your pain is unusual for you, your pain is concerning for you and you have a fever Follow-up/Referrals: Stewart Sierra DO [Primary Care Provider] - Diet: Regular Addtl Provider Instructions: Follow-up with primary care physician at [facility] on 08/06/2018 at 12:45pm with Dr. Solano. (Dr. Sierra not available next week.) 08/06/2018 2:00 PM Provider Li Pulido MD Department Dermatology [facility] Call primary care physician or return to the ER immediately if with worsening of symptoms, fever/chills, pain with urination, abdominal pain, nausea or vomiting. Prescriptions: Continued atorvastatin [Lipitor] 40 mg tablet 40 mg PO DAILY RF: 0 aspirin [Aspir-Low] 81 mg Tablet,Delayed Release (Dr/Ec) 81 mg PO DAILY RF: 0 lorazepam [Ativan] 0.5 mg tablet 0.5 mg PO DAILY PRN (Reason: Anxiety) RF: 0 tamoxifen 20 mg tablet 20 mg PO DAILY RF: 0 escitalopram oxalate [Lexapro] 20 mg tablet 20 mg PO DAILY RF: 0 multivitamin Tablet 1 tab PO DAILY RF: 0 Stand-Alone Forms: [facility] Discharge Orders: Discharge Order (Routine); Ordered 07/30/18 Ordered By: Emanuel Simmons Skilled Items Patient informed of condition?: Yes DNR: Yes Discharge Level of Care: Skilled Communicable Disease: No Discharge Prognosis: Stable Admission Data Admit Date/Time: 07/24/18 14:50 Attending Provider: Emanuel Simmons Admit Provider: Jonatan Robison Primary Care Provider: Stewart Sierra Other Providers: Jonatan Robison ; Jason Cabrera Service: Telemetry Medical Other Interventions: Discharge Summary Assessment (RN) Last Done: 07/30/18 11:24
== END 2018-07-30 13:06 | DRG 690 ==
LOC: 2W 18:56 → ED 18:56 → 2W 22:31 → SUATTDRO 07-24 14:50 → 2W 07-28 16:08 → 3N 07-29 08:33